=== PATIENT | male | born 1985 | race Caucasian/White ===

== ENCOUNTER 2019-12-28 07:42 | Emergency (ER) | payer OTHER ==
[2019-12-28] MEDS ORDERED: ACETAMINOPHEN 325 MG TAB PO STA (08:28)
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
[2019-12-28] MEDS ORDERED: IBUPROFEN 800 MG TAB PO ONE (10:44)
[2019-12-28 11:07] VITALS: BP 102/66
[2019-12-28 11:13] LABS: Bilirubin,Urine NEG (Negative); Blood,Urine MOD (Negative); Color,Urine Colorless (Yellow); Protein,Urine <15 mg/dL mg/dL (Negative); Urobilinogen,Urine < 2.0 mg/dL (<2.0)
== END 2019-12-28 12:30 | disposition home or self-care (01) ==
LOC: ED 07:42
DX: M54.89 Other dorsalgia (principal); W30.81XA Contact with agricultural transport vehicle in stationary use, initial encounter; Y93.89 Activity, other specified; Y92.410 Unspecified street and highway as the place of occurrence of the external cause; Y99.8 Other external cause status
CPT/HCPCS: 71046; 72100; 81001